=== PATIENT | female | born 1985 | race Hispanic/Latino ===

== ENCOUNTER 2021-11-22 11:26 | Inpatient (IN) | payer OTHER ==
[2021-11-22] MEDS ORDERED: Heparin 1,000 UNITS/ML VIAL ONE (13:58)
[2021-11-22 15:31] LABS: #Lymphocytes 1.5 thou/uL (1.20-3.40); #Monocytes 0.9 thou/uL (0.11-0.59); %Basophils 0.2 % (0.0-1.0); %Lymphocytes 11.2 % (21.0-51.0); %Monocytes 6.7 % (0.0-10.0); %Neutrophils 81.8 % (42.0-75.0); Hemoglobin 11.7 g/dL (12.0-16.0); Mean Corpuscular HGB CONC 32.1 g/dL (32.0-36.0); Mean Corpuscular Hemoglobin 26.5 pg (27.0-31.0); Mean Corpuscular Volume 82.4 fL (78.0-98.0); Mean Platelet Volume 6.9 fL (7.4-10.4); Platelet Count 374 thou/uL (130-400); RBC Distribution Width 15.6 % (11.5-14.5); Red Blood Cell (RBC) Count 4.42 mill/uL (4.20-5.40); White Blood Cell (WBC) Count 13.5 thou/uL (4.8-10.8)
[2021-11-22 15:54] LABS: ALT (SGPT) 28 U/L (8-55); AST (SGOT) 28 U/L (5-34); Albumin 2.9 g/dL (3.5-5.0); Alkaline Phosphatase 143 U/L (40-110); Anion Gap 16 mmol/L (10-20); BUN (Urea Nitrogen) 20 mg/dL (7.0-18.7); Bilirubin, Total 0.8 mg/dL (0.2-1.2); Calc. Creatinine Clearance 0 mL/min (70-130); Calcium 8.7 mg/dL (7.8-10.44); Carbon Dioxide 26 mmol/L (22-29); Chloride 101 mmol/L (98-107); Globulin 4.1 g/dL (2.4-3.5); Glucose 95 mg/dL (70-105); Sodium 139 mmol/L (136-145)
[2021-11-22] MEDS ORDERED: Acetaminophen 500 MG TAB ONE (16:21)
[2021-11-22] MEDS ORDERED: Ondansetron PF 4 MG/2 ML Vial ONE ×3 (16:41→21:28)
[2021-11-22] MEDS ORDERED: Morphine 4 MG/ML VIAL ONE (16:41)
[2021-11-22] MEDS ORDERED: Cefepime 2 GM VIAL ONE (16:41)
[2021-11-22] MEDS ORDERED: Vancomycin 1 GM/200 ML BAG ONE (18:19)
[2021-11-22] MEDS ORDERED: Fentanyl 100 MCG/2 ML VIAL ONE ×4 (18:19→23:18)
[2021-11-22] MEDS ORDERED: ceFAZolin (BATCH) 2 GM in Premix Bag 1 BAG IVPB SCH (18:45)
[2021-11-22 19:16] LABS: SARS-CoV-2 NAA Rapid Test Not Detected (NotDetected)
[2021-11-22] MEDS ORDERED: CEFAZOLIN 2 GM in Sodium Chloride 0.9% 100 ML IVPB SCH (19:30)
[2021-11-22] MEDS ORDERED: Acetaminophen 500 MG TAB PO PRN (19:52)
[2021-11-22] MEDS ORDERED: Ondansetron ODT 4 MG TAB PO PRN (19:52)
[2021-11-22] MEDS ORDERED: HYDROcodone/Acetaminophen 5/325 mg Tablet PO PRN (19:52)
[2021-11-22] MEDS ORDERED: Ondansetron PF 4 MG/2 ML Vial IVP PRN (19:52)
[2021-11-22] MEDS ORDERED: Dextrose 50% Abboject 50 ML SYRINGE SLOW IVP PRN (20:03)
[2021-11-22] MEDS ORDERED: HumaLOG 300 UNITS/3 ML VIAL SC PRN ×2 (20:03)
[2021-11-22] MEDS ORDERED: Dextrose 5% in Water 1,000 ML IV PRN (20:03)
[2021-11-22] MEDS ORDERED: SUGAMMADEX SODIUM 200 MG/2 ML VIAL ONE (20:22)
[2021-11-22] MEDS ORDERED: Midazolam HCl 2 mg/2 ml Vial ONE (20:22)
[2021-11-22] MEDS ORDERED: fentaNYL Citrate/PF 100 MCG/2 ML SYRINGE ONE (20:22)
[2021-11-22] MEDS ORDERED: Neomycin-Polymyxin 1 ML AMP ONE (20:40)
[2021-11-22] MEDS ORDERED: PROPOFOL 200 MG/20 ML VIAL ONE (21:28)
[2021-11-22] MEDS ORDERED: Lidocaine 1% PF 5 ML VIAL ONE (21:28)
[2021-11-22] MEDS ORDERED: Ketorolac Tromethamine 30 MG/ML VIAL ONE (21:28)
[2021-11-22] MEDS ORDERED: Clindamycin/D5W 900 MG in Premix Bag 1 BAG IVPB SCH (22:00)
[2021-11-22] MEDS ORDERED: Ondansetron HCl/PF 4 MG/2 ML Vial IVP PRN (22:31)
[2021-11-22] MEDS ORDERED: Promethazine HCl 25 MG/ML VIAL IVPB PRN (22:31)
[2021-11-22] MEDS ORDERED: Promethazine HCl 25 MG/ML VIAL IM PRN (22:31)
[2021-11-22] MEDS ORDERED: HYDROmorphone 0.5 MG/0.5 ML SYRINGE ONE ×2 (23:28→23:46)
[2021-11-22] MEDS ORDERED: HYDROmorphone 2 MG/ML VIAL SLOW IVP PRN (23:30)
[2021-11-23] MEDS ORDERED: HYDROmorphone 0.5 MG/0.5 ML SYRINGE ONE (00:04)
[2021-11-23] MEDS: Sodium Chloride 0.9% 1,000 ML IV SCH ×3 (00:59→15:07)
[2021-11-23 01:01] VITALS: BMI 32.1
[2021-11-23] MEDS: Famotidine 40 MG/4 ML VIAL SLOW IVP SCH ×2 (01:25→14:50)
[2021-11-23] MEDS: Clindamycin/D5W 900 MG in Premix Bag 1 BAG IVPB SCH ×3 (01:26→18:06)
[2021-11-23] MEDS ORDERED: VANCOMYCIN 1.25 GM/250 ML BAG 1.25 GM in Premix Bag 1 BAG IVPB SCH (04:00)
[2021-11-23] MEDS: Morphine 4 MG/ML VIAL SLOW IVP PRN ×2 (05:43→19:47)
[2021-11-23 08:18] LABS: Hemoglobin 10.8 g/dL (12.0-16.0); Mean Corpuscular Hemoglobin 25.9 pg (27.0-31.0); Mean Corpuscular Volume 86.4 fL (78.0-98.0); Mean Platelet Volume 6.7 fL (7.4-10.4); Platelet Count 319 thou/uL (130-400); RBC Distribution Width 15.9 % (11.5-14.5); Red Blood Cell (RBC) Count 4.15 mill/uL (4.20-5.40); White Blood Cell (WBC) Count 15.6 thou/uL (4.8-10.8)
[2021-11-23 08:29] LABS: ALT (SGPT) 24 U/L (8-55); AST (SGOT) 31 U/L (5-34); Albumin 2.4 g/dL (3.5-5.0); Alkaline Phosphatase 122 U/L (40-110); Anion Gap 15 mmol/L (10-20); BUN (Urea Nitrogen) 15 mg/dL (7.0-18.7); Bilirubin, Total 0.7 mg/dL (0.2-1.2); Calc. Creatinine Clearance 167 mL/min (70-130); Calcium 7.7 mg/dL (7.8-10.44); Carbon Dioxide 19 mmol/L (22-29); Chloride 107 mmol/L (98-107); Globulin 3.6 g/dL (2.4-3.5); Glucose 89 mg/dL (70-105); Potassium 4.3 mmol/L (3.5-5.1); Sodium 137 mmol/L (136-145)
[2021-11-23 08:42] LABS: Hemoglobin A1c 5.8 % (4.0-6.0)
[2021-11-23 08:53] LABS: #Monocytes 1.5 thou/uL (0.11-0.59); #Neutrophils 12.1 thou/uL (1.40-6.50); %Eosinophils 0.1 % (0.0-10.0); %Lymphocytes 13.1 % (21.0-51.0); %Monocytes 9.4 % (0.0-10.0); %Neutrophils 77.4 % (42.0-75.0); Band 26 % (5-11); Lymphocytes 8 % (21-51); MDiff Complete? YES; Macrocytosis SLIGHT = 6-15 cells (100X) (0-5/hpf); Monocytes 11 % (0-10); Neutrophil 55 % (42-75); Platelet Morphology Comment Appears Adequate; Polychromasia SLIGHT = 2-3 cells (100X) (0-2/hpf)
[2021-11-23] MEDS: Enoxaparin Sodium 40 MG/0.4 ML SYRINGE SC SCH (09:57)
[2021-11-23] MEDS: HYDROcodone/Acetaminophen 5/325 mg Tablet PO PRN ×4 (09:58→22:47)
[2021-11-23] MEDS ORDERED: ceFAZolin 2 GM/Dextrose 50 ML 2 GM in Premix Bag 1 BAG IVPB SCH ×2 (14:00→15:30)
[2021-11-23] MEDS ORDERED: Sodium Bicarb 50 MEQ/50 ML Abboject 8.4% SYRINGE IVP SCH (14:15)
[2021-11-23] MEDS: CEFAZOLIN 2 GM in Sodium Chloride 0.9% 100 ML IVPB SCH ×2 (14:56→21:02)
[2021-11-23] MEDS: Famotidine 20 MG TAB PO SCH (21:03)
[2021-11-24] MEDS: HYDROcodone/Acetaminophen 5/325 mg Tablet PO PRN ×4 (02:36→21:16)
[2021-11-24] MEDS: Clindamycin/D5W 900 MG in Premix Bag 1 BAG IVPB SCH ×3 (02:39→18:16)
[2021-11-24] MEDS: Sodium Chloride 0.9% 1,000 ML IV SCH ×3 (02:39→21:13)
[2021-11-24] MEDS: CEFAZOLIN 2 GM in Sodium Chloride 0.9% 100 ML IVPB SCH ×3 (05:31→21:12)
[2021-11-24 06:09] LABS: #Lymphocytes 2.3 thou/uL (1.20-3.40); #Monocytes 1.2 thou/uL (0.11-0.59); #Neutrophils 6.7 thou/uL (1.40-6.50); %Basophils 0.2 % (0.0-1.0); %Eosinophils 0.2 % (0.0-10.0); %Lymphocytes 22.2 % (21.0-51.0); %Monocytes 11.7 % (0.0-10.0); %Neutrophils 65.6 % (42.0-75.0); Hemoglobin 8.4 g/dL (12.0-16.0); Mean Corpuscular HGB CONC 31.9 g/dL (32.0-36.0); Mean Corpuscular Hemoglobin 26.5 pg (27.0-31.0); Mean Corpuscular Volume 83.2 fL (78.0-98.0); Mean Platelet Volume 6.3 fL (7.4-10.4); Platelet Count 351 thou/uL (130-400); RBC Distribution Width 15.4 % (11.5-14.5); Red Blood Cell (RBC) Count 3.17 mill/uL (4.20-5.40); White Blood Cell (WBC) Count 10.2 thou/uL (4.8-10.8)
[2021-11-24 06:33] LABS: Anion Gap 8 mmol/L (10-20); BUN (Urea Nitrogen) 9 mg/dL (7.0-18.7); Calc. Creatinine Clearance 175 mL/min (70-130); Calcium 7.4 mg/dL (7.8-10.44); Carbon Dioxide 26 mmol/L (22-29); Chloride 104 mmol/L (98-107); Glucose 96 mg/dL (70-105); Potassium 3.6 mmol/L (3.5-5.1); Sodium 134 mmol/L (136-145)
[2021-11-24] MEDS ORDERED: Calcium Gluconate 100 MG/ML 10 ML IVPB SCH (08:00)
[2021-11-24] MEDS: Famotidine 20 MG TAB PO SCH ×2 (08:47→21:15)
[2021-11-24] MEDS: Morphine 4 MG/ML VIAL SLOW IVP PRN ×4 (08:47→23:43)
[2021-11-24] MEDS: Enoxaparin Sodium 40 MG/0.4 ML SYRINGE SC SCH (10:09)
[2021-11-24] MEDS ORDERED: fentaNYL Citrate/PF 100 MCG/2 ML SYRINGE ONE (15:14)
[2021-11-24] MEDS ORDERED: Neomycin-Polymyxin 1 ML AMP ONE (15:44)
[2021-11-24] MEDS ORDERED: CEFAZOLIN 2 GM VIAL ONE (15:58)
[2021-11-24] MEDS ORDERED: Sodium Chloride 0.9% 100 ML ONE (15:58)
[2021-11-24] MEDS ORDERED: Dextrose 50% Abboject 50 ML SYRINGE ONE (16:08)
[2021-11-24] MEDS ORDERED: PROPOFOL 200 MG/20 ML VIAL ONE (16:34)
[2021-11-24] MEDS ORDERED: Lidocaine 1% PF 5 ML VIAL ONE (16:34)
[2021-11-24] MEDS ORDERED: Ondansetron PF 4 MG/2 ML Vial ONE (16:34)
[2021-11-24] MEDS ORDERED: Dexamethasone 20 MG/5 ML VIAL ONE (16:34)
[2021-11-24] MEDS ORDERED: Ondansetron HCl/PF 4 MG/2 ML Vial IVP PRN (17:33)
[2021-11-24] MEDS ORDERED: PACU-Morphine 4MG/ML VIAL SLOW IVP PRN (17:33)
[2021-11-24] MEDS ORDERED: HYDROmorphone 2 MG/ML VIAL SLOW IVP PRN (17:33)
[2021-11-24] MEDS ORDERED: Promethazine HCl 25 MG/ML VIAL IM PRN (17:33)
[2021-11-24] MEDS ORDERED: Promethazine HCl 25 MG/ML VIAL IVPB PRN (17:33)
[2021-11-24] MEDS ORDERED: HYDROcodone/Acetaminophen 5/325 mg Tablet ONE ×2 (17:41)
[2021-11-25] MEDS: Clindamycin/D5W 900 MG in Premix Bag 1 BAG IVPB SCH ×3 (01:31→17:10)
[2021-11-25] MEDS: CEFAZOLIN 2 GM in Sodium Chloride 0.9% 100 ML IVPB SCH ×3 (05:09→21:32)
[2021-11-25] MEDS: HYDROcodone/Acetaminophen 5/325 mg Tablet PO PRN ×4 (05:09→21:31)
[2021-11-25] MEDS: Famotidine 20 MG TAB PO SCH ×2 (09:04→21:32)
[2021-11-25] MEDS: Enoxaparin Sodium 40 MG/0.4 ML SYRINGE SC SCH (09:04)
[2021-11-25] MEDS: Sodium Chloride 0.9% 1,000 ML IV SCH ×3 (09:05→21:32)
[2021-11-25] MEDS: metFORMIN 500 MG TAB PO SCH (17:10)
[2021-11-25] MEDS: Ferrous Sulfate 325 MG TAB PO SCH (17:10)
[2021-11-26] MEDS: HYDROcodone/Acetaminophen 5/325 mg Tablet PO PRN ×5 (02:20→21:39)
[2021-11-26] MEDS: CEFAZOLIN 2 GM in Sodium Chloride 0.9% 100 ML IVPB SCH ×3 (06:23→21:39)
[2021-11-26] MEDS: Levothyroxine Sodium 50 MCG TAB PO SCH (06:24)
[2021-11-26 08:10] LABS: Anion Gap 12 mmol/L (10-20); BUN (Urea Nitrogen) 11 mg/dL (7.0-18.7); Calc. Creatinine Clearance 161 mL/min (70-130); Calcium 7.8 mg/dL (7.8-10.44); Carbon Dioxide 25 mmol/L (22-29); Chloride 106 mmol/L (98-107); Glucose 86 mg/dL (70-105); Potassium 3.7 mmol/L (3.5-5.1); Sodium 139 mmol/L (136-145)
[2021-11-26] MEDS: Ferrous Sulfate 325 MG TAB PO SCH ×2 (08:32→17:30)
[2021-11-26] MEDS: Famotidine 20 MG TAB PO SCH ×2 (08:33→21:39)
[2021-11-26] MEDS: Enoxaparin Sodium 40 MG/0.4 ML SYRINGE SC SCH (08:33)
[2021-11-26] MEDS: metFORMIN 500 MG TAB PO SCH ×2 (08:33→17:30)
[2021-11-26] MEDS: Sodium Chloride 0.9% 1,000 ML IV SCH (12:09)
[2021-11-26] MEDS: Morphine 4 MG/ML VIAL SLOW IVP PRN (21:45)
[2021-11-27] MEDS: Sodium Chloride 0.9% 1,000 ML IV SCH ×2 (02:03→05:59)
[2021-11-27 05:30] LABS: #Eosinphils 0.1 thou/uL (0.0-0.7); #Lymphocytes 2.8 thou/uL (1.20-3.40); #Monocytes 1.1 thou/uL (0.11-0.59); #Neutrophils 7.9 thou/uL (1.40-6.50); %Basophils 0.2 % (0.0-1.0); %Eosinophils 0.6 % (0.0-10.0); %Lymphocytes 23.3 % (21.0-51.0); %Monocytes 9.5 % (0.0-10.0); %Neutrophils 66.4 % (42.0-75.0); Hemoglobin 9.4 g/dL (12.0-16.0); Mean Corpuscular HGB CONC 32.7 g/dL (32.0-36.0); Mean Corpuscular Hemoglobin 26.5 pg (27.0-31.0); Mean Corpuscular Volume 80.9 fL (78.0-98.0); Mean Platelet Volume 6.2 fL (7.4-10.4); Platelet Count 589 thou/uL (130-400); RBC Distribution Width 15.3 % (11.5-14.5); Red Blood Cell (RBC) Count 3.53 mill/uL (4.20-5.40); White Blood Cell (WBC) Count 11.9 thou/uL (4.8-10.8)
[2021-11-27 05:44] LABS: Anion Gap 11 mmol/L (10-20); BUN (Urea Nitrogen) 10 mg/dL (7.0-18.7); Calc. Creatinine Clearance 181 mL/min (70-130); Calcium 8.4 mg/dL (7.8-10.44); Carbon Dioxide 25 mmol/L (22-29); Chloride 102 mmol/L (98-107); Glucose 89 mg/dL (70-105); Potassium 4.2 mmol/L (3.5-5.1); Sodium 134 mmol/L (136-145)
[2021-11-27] MEDS: CEFAZOLIN 2 GM in Sodium Chloride 0.9% 100 ML IVPB SCH ×3 (05:59→21:04)
[2021-11-27] MEDS: HYDROcodone/Acetaminophen 5/325 mg Tablet PO PRN ×5 (05:59→23:21)
[2021-11-27] MEDS: Levothyroxine Sodium 50 MCG TAB PO SCH (05:59)
[2021-11-27] MEDS: Famotidine 20 MG TAB PO SCH ×2 (09:01→21:03)
[2021-11-27] MEDS: Ferrous Sulfate 325 MG TAB PO SCH ×2 (09:01→18:05)
[2021-11-27] MEDS: metFORMIN 500 MG TAB PO SCH ×2 (09:01→18:05)
[2021-11-27] MEDS: Enoxaparin Sodium 40 MG/0.4 ML SYRINGE SC SCH (09:01)
[2021-11-27] MEDS ORDERED: Artificial Tear Sol 15 ML BOT EA EYE PRN (11:30)
[2021-11-27] MEDS ORDERED: Acetaminophen 500 MG TAB PO PRN (11:30)
[2021-11-27] MEDS ORDERED: Cepastat Lozenges 1 LOZ PO PRN (11:30)
[2021-11-27] MEDS ORDERED: Senokot S 8.6-50 MG TAB PO PRN (11:30)
[2021-11-27] MEDS ORDERED: Calcium Carbonate 500 MG ChewTAB PO PRN (11:30)
[2021-11-27] MEDS ORDERED: GUAIFENESIN SF SOLN 200 MG/10 ML UDCUP PO PRN (11:30)
[2021-11-27] MEDS ORDERED: Loratadine 10 MG TAB PO PRN (11:30)
[2021-11-27] MEDS ORDERED: Zolpidem Tartrate 5 MG TAB PO PRN (11:30)
[2021-11-27] MEDS ORDERED: hydrALAZINE 20 MG/ML VIAL SLOW IVP PRN (11:30)
[2021-11-27] MEDS ORDERED: Moisturizing Cream (Eucerin) 113 GM JAR TOP PRN (11:30)
[2021-11-27] MEDS ORDERED: Loperamide HCl 2 MG CAP PO PRN (11:30)
[2021-11-28] MEDS: Levothyroxine Sodium 50 MCG TAB PO SCH (05:15)
[2021-11-28] MEDS: CEFAZOLIN 2 GM in Sodium Chloride 0.9% 100 ML IVPB SCH ×3 (05:16→21:23)
[2021-11-28] MEDS: HYDROcodone/Acetaminophen 5/325 mg Tablet PO PRN ×5 (05:16→23:32)
[2021-11-28 05:41] LABS: #Eosinphils 0.1 thou/uL (0.0-0.7); #Lymphocytes 2.3 thou/uL (1.20-3.40); #Monocytes 0.9 thou/uL (0.11-0.59); #Neutrophils 8.2 thou/uL (1.40-6.50); %Basophils 0.3 % (0.0-1.0); %Eosinophils 0.6 % (0.0-10.0); %Lymphocytes 19.9 % (21.0-51.0); %Monocytes 8.2 % (0.0-10.0); Mean Corpuscular Hemoglobin 26.9 pg (27.0-31.0); Mean Corpuscular Volume 81.7 fL (78.0-98.0); Mean Platelet Volume 5.9 fL (7.4-10.4); Platelet Count 710 thou/uL (130-400); RBC Distribution Width 15.6 % (11.5-14.5); White Blood Cell (WBC) Count 11.5 thou/uL (4.8-10.8)
[2021-11-28 06:04] LABS: ALT (SGPT) 14 U/L (8-55); AST (SGOT) 26 U/L (5-34); Albumin 2.7 g/dL (3.5-5.0); Alkaline Phosphatase 112 U/L (40-110); Anion Gap 10 mmol/L (10-20); BUN (Urea Nitrogen) 8 mg/dL (7.0-18.7); Bilirubin, Total 0.7 mg/dL (0.2-1.2); CRP (Inflammatory) 13.66 mg/dL (= or < 0.5); Calc. Creatinine Clearance 161 mL/min (70-130); Calcium 8.9 mg/dL (7.8-10.44); Carbon Dioxide 27 mmol/L (22-29); Chloride 101 mmol/L (98-107); Globulin 4.3 g/dL (2.4-3.5); Glucose 78 mg/dL (70-105); Magnesium 2.1 mg/dL (1.6-2.6); Phosphorus 4.4 mg/dL (2.3-4.7); Potassium 4.3 mmol/L (3.5-5.1); Sodium 134 mmol/L (136-145)
[2021-11-28] MEDS ORDERED: diphenhydrAMINE 25 MG CAP PO SCH ×2 (07:00→23:45)
[2021-11-28] MEDS: Enoxaparin Sodium 40 MG/0.4 ML SYRINGE SC SCH (08:52)
[2021-11-28] MEDS: Ferrous Sulfate 325 MG TAB PO SCH ×2 (08:52→17:35)
[2021-11-28] MEDS: metFORMIN 500 MG TAB PO SCH ×2 (08:52→17:36)
[2021-11-28] MEDS: Famotidine 20 MG TAB PO SCH ×2 (08:52→21:24)
[2021-11-29] MEDS: CEFAZOLIN 2 GM in Sodium Chloride 0.9% 100 ML IVPB SCH (05:49)
[2021-11-29] MEDS: Levothyroxine Sodium 50 MCG TAB PO SCH (05:50)
[2021-11-29 06:06] LABS: #Eosinphils 0.2 thou/uL (0.0-0.7); #Lymphocytes 1.8 thou/uL (1.20-3.40); #Neutrophils 11.2 thou/uL (1.40-6.50); %Basophils 0.1 % (0.0-1.0); %Eosinophils 1.7 % (0.0-10.0); %Lymphocytes 12.6 % (21.0-51.0); %Monocytes 7.1 % (0.0-10.0); %Neutrophils 78.5 % (42.0-75.0); Hemoglobin 9.4 g/dL (12.0-16.0); Mean Corpuscular HGB CONC 31.3 g/dL (32.0-36.0); Mean Corpuscular Volume 83.3 fL (78.0-98.0); Mean Platelet Volume 5.7 fL (7.4-10.4); Platelet Count 738 thou/uL (130-400); RBC Distribution Width 15.9 % (11.5-14.5); White Blood Cell (WBC) Count 14.3 thou/uL (4.8-10.8)
[2021-11-29] MEDS: HYDROcodone/Acetaminophen 5/325 mg Tablet PO PRN ×4 (07:14→20:17)
[2021-11-29] MEDS: Famotidine 20 MG TAB PO SCH ×2 (09:28→20:17)
[2021-11-29] MEDS: Enoxaparin Sodium 40 MG/0.4 ML SYRINGE SC SCH (09:28)
[2021-11-29] MEDS: Ferrous Sulfate 325 MG TAB PO SCH ×2 (09:28→18:09)
[2021-11-29] MEDS: metFORMIN 500 MG TAB PO SCH ×2 (09:28→18:09)
[2021-11-29] MEDS ORDERED: Calamine/Zinc Oxide 177 ML LOTION TP PRN (10:35)
[2021-11-29] MEDS: VANCOMYCIN 1.25 GM/250 ML BAG 1.25 GM in Premix Bag 1 BAG IVPB SCH (14:35)
[2021-11-30] MEDS: Levothyroxine Sodium 50 MCG TAB PO SCH (03:10)
[2021-11-30] MEDS: HYDROcodone/Acetaminophen 5/325 mg Tablet PO PRN ×4 (03:10→23:34)
[2021-11-30] MEDS: VANCOMYCIN 1.25 GM/250 ML BAG 1.25 GM in Premix Bag 1 BAG IVPB SCH ×2 (03:11→14:23)
[2021-11-30 05:46] LABS: #Eosinphils 0.4 thou/uL (0.0-0.7); #Lymphocytes 2.7 thou/uL (1.20-3.40); #Monocytes 1.2 thou/uL (0.11-0.59); #Neutrophils 8.1 thou/uL (1.40-6.50); %Basophils 0.2 % (0.0-1.0); %Eosinophils 2.9 % (0.0-10.0); %Lymphocytes 21.6 % (21.0-51.0); %Monocytes 9.4 % (0.0-10.0); Hemoglobin 9.2 g/dL (12.0-16.0); Mean Corpuscular Hemoglobin 26.1 pg (27.0-31.0); Mean Platelet Volume 5.5 fL (7.4-10.4); Platelet Count 790 thou/uL (130-400); RBC Distribution Width 15.7 % (11.5-14.5); Red Blood Cell (RBC) Count 3.54 mill/uL (4.20-5.40); White Blood Cell (WBC) Count 12.3 thou/uL (4.8-10.8)
[2021-11-30 06:29] LABS: Anion Gap 12 mmol/L (10-20); BUN (Urea Nitrogen) 10 mg/dL (7.0-18.7); Calc. Creatinine Clearance 164 mL/min (70-130); Calcium 9.1 mg/dL (7.8-10.44); Carbon Dioxide 25 mmol/L (22-29); Chloride 102 mmol/L (98-107); Glucose 98 mg/dL (70-105); Potassium 4.4 mmol/L (3.5-5.1); Sodium 135 mmol/L (136-145)
[2021-11-30] MEDS: metFORMIN 500 MG TAB PO SCH ×2 (07:40→18:04)
[2021-11-30] MEDS: Ferrous Sulfate 325 MG TAB PO SCH ×2 (07:41→18:05)
[2021-11-30] MEDS: Enoxaparin Sodium 40 MG/0.4 ML SYRINGE SC SCH (07:41)
[2021-11-30] MEDS: Famotidine 20 MG TAB PO SCH ×2 (07:41→20:54)
[2021-11-30] MEDS: Ampicillin 2 GM in Sodium Chloride 0.9% 100 ML SLOW IVP SCH ×3 (18:05→23:29)
[2021-12-01] MEDS: Levothyroxine Sodium 50 MCG TAB PO SCH (06:28)
[2021-12-01] MEDS: Ampicillin 2 GM in Sodium Chloride 0.9% 100 ML SLOW IVP SCH ×2 (06:28→13:11)
[2021-12-01] MEDS ORDERED: HYDROmorphone 0.5 MG/0.5 ML SYRINGE SLOW IVP SCH (09:45)
[2021-12-01] MEDS: Enoxaparin Sodium 40 MG/0.4 ML SYRINGE SC SCH (09:54)
[2021-12-01] MEDS: Ferrous Sulfate 325 MG TAB PO SCH ×2 (09:54→19:06)
[2021-12-01] MEDS: metFORMIN 500 MG TAB PO SCH ×2 (09:54→19:06)
[2021-12-01] MEDS: Famotidine 20 MG TAB PO SCH ×2 (09:54→20:25)
[2021-12-01] MEDS: HYDROcodone/Acetaminophen 5/325 mg Tablet PO PRN ×3 (10:01→20:25)
[2021-12-01 10:10] LABS: #Eosinphils 0.3 thou/uL (0.0-0.7); #Lymphocytes 1.7 thou/uL (1.20-3.40); #Monocytes 0.8 thou/uL (0.11-0.59); #Neutrophils 7.2 thou/uL (1.40-6.50); %Basophils 0.2 % (0.0-1.0); %Eosinophils 3.5 % (0.0-10.0); %Lymphocytes 16.9 % (21.0-51.0); %Neutrophils 71.4 % (42.0-75.0); Hemoglobin 8.9 g/dL (12.0-16.0); Mean Corpuscular HGB CONC 31.9 g/dL (32.0-36.0); Mean Corpuscular Hemoglobin 26.4 pg (27.0-31.0); Mean Platelet Volume 5.9 fL (7.4-10.4); Platelet Count 708 thou/uL (130-400); RBC Distribution Width 15.5 % (11.5-14.5); Red Blood Cell (RBC) Count 3.38 mill/uL (4.20-5.40)
[2021-12-01] MEDS: VANCOMYCIN 1.25 GM/250 ML BAG 1.25 GM in Premix Bag 1 BAG IVPB SCH (15:39)
[2021-12-02] MEDS: HYDROcodone/Acetaminophen 5/325 mg Tablet PO PRN ×4 (02:37→22:26)
[2021-12-02] MEDS: VANCOMYCIN 1.25 GM/250 ML BAG 1.25 GM in Premix Bag 1 BAG IVPB SCH ×2 (02:50→15:17)
[2021-12-02] MEDS: Levothyroxine Sodium 50 MCG TAB PO SCH (05:19)
[2021-12-02] MEDS: Enoxaparin Sodium 40 MG/0.4 ML SYRINGE SC SCH (08:22)
[2021-12-02] MEDS: Ferrous Sulfate 325 MG TAB PO SCH ×2 (08:22→17:58)
[2021-12-02] MEDS: metFORMIN 500 MG TAB PO SCH ×2 (08:22→17:58)
[2021-12-02] MEDS: Famotidine 20 MG TAB PO SCH ×2 (08:23→21:43)
[2021-12-02] MEDS: Lidocaine 5% Patch TD SCH (11:02)
[2021-12-02] MEDS: Transdermal Patch Removal TOP SCH (21:43)
[2021-12-03 01:47] LABS: Vancomycin, Trough 12.2 ug/mL
[2021-12-03] MEDS: HYDROcodone/Acetaminophen 5/325 mg Tablet PO PRN ×4 (02:41→18:48)
[2021-12-03] MEDS: VANCOMYCIN 1.25 GM/250 ML BAG 1.25 GM in Premix Bag 1 BAG IVPB SCH ×2 (02:43→14:31)
[2021-12-03] MEDS: Levothyroxine Sodium 50 MCG TAB PO SCH (06:21)
[2021-12-03] MEDS: metFORMIN 500 MG TAB PO SCH ×2 (08:38→18:51)
[2021-12-03] MEDS: Ferrous Sulfate 325 MG TAB PO SCH ×2 (08:39→18:47)
[2021-12-03] MEDS: Famotidine 20 MG TAB PO SCH ×2 (08:40→23:12)
[2021-12-03] MEDS: Lidocaine 5% Patch TD SCH (08:40)
[2021-12-03] MEDS: Enoxaparin Sodium 40 MG/0.4 ML SYRINGE SC SCH (08:40)
[2021-12-03] MEDS: Transdermal Patch Removal TOP SCH (23:12)
[2021-12-04] MEDS: HYDROcodone/Acetaminophen 5/325 mg Tablet PO PRN ×4 (02:03→16:41)
[2021-12-04] MEDS: VANCOMYCIN 1.25 GM/250 ML BAG 1.25 GM in Premix Bag 1 BAG IVPB SCH ×2 (02:04→14:32)
[2021-12-04] MEDS: Levothyroxine Sodium 50 MCG TAB PO SCH (06:09)
[2021-12-04] MEDS: Ferrous Sulfate 325 MG TAB PO SCH ×2 (08:15→16:41)
[2021-12-04] MEDS: Enoxaparin Sodium 40 MG/0.4 ML SYRINGE SC SCH (08:15)
[2021-12-04] MEDS: Famotidine 20 MG TAB PO SCH ×2 (08:15→23:00)
[2021-12-04] MEDS: metFORMIN 500 MG TAB PO SCH ×2 (08:18→16:41)
[2021-12-04] MEDS: Lidocaine 5% Patch TD SCH (10:45)
[2021-12-04] MEDS: Transdermal Patch Removal TOP SCH (23:01)
[2021-12-05] MEDS: HYDROcodone/Acetaminophen 5/325 mg Tablet PO PRN ×4 (00:16→18:55)
[2021-12-05 01:31] LABS: Vancomycin, Trough 10.2 ug/mL
[2021-12-05] MEDS: VANCOMYCIN 1.25 GM/250 ML BAG 1.25 GM in Premix Bag 1 BAG IVPB SCH ×2 (02:24→15:09)
[2021-12-05] MEDS: Levothyroxine Sodium 50 MCG TAB PO SCH (05:16)
[2021-12-05] MEDS: Lidocaine 5% Patch TD SCH (09:33)
[2021-12-05] MEDS: metFORMIN 500 MG TAB PO SCH ×2 (09:33→18:53)
[2021-12-05] MEDS: Enoxaparin Sodium 40 MG/0.4 ML SYRINGE SC SCH (09:33)
[2021-12-05] MEDS: Famotidine 20 MG TAB PO SCH ×2 (09:34→21:53)
[2021-12-05] MEDS: Ferrous Sulfate 325 MG TAB PO SCH ×2 (09:34→18:54)
[2021-12-06] MEDS: VANCOMYCIN 1.25 GM/250 ML BAG 1.25 GM in Premix Bag 1 BAG IVPB SCH ×2 (02:36→14:26)
[2021-12-06] MEDS: Transdermal Patch Removal TOP SCH ×2 (02:36→23:19)
[2021-12-06] MEDS: HYDROcodone/Acetaminophen 5/325 mg Tablet PO PRN ×3 (04:45→14:26)
[2021-12-06] MEDS: Levothyroxine Sodium 50 MCG TAB PO SCH (04:46)
[2021-12-06] MEDS: Ferrous Sulfate 325 MG TAB PO SCH ×2 (09:02→17:30)
[2021-12-06] MEDS: Famotidine 20 MG TAB PO SCH ×2 (09:02→21:47)
[2021-12-06] MEDS: Enoxaparin Sodium 40 MG/0.4 ML SYRINGE SC SCH (09:02)
[2021-12-06] MEDS: Lidocaine 5% Patch TD SCH (09:03)
[2021-12-06] MEDS: metFORMIN 500 MG TAB PO SCH ×2 (09:07→18:18)
[2021-12-07] MEDS: VANCOMYCIN 1.25 GM/250 ML BAG 1.25 GM in Premix Bag 1 BAG IVPB SCH ×2 (02:59→14:27)
[2021-12-07] MEDS: Levothyroxine Sodium 50 MCG TAB PO SCH (05:10)
[2021-12-07] MEDS: metFORMIN 500 MG TAB PO SCH ×2 (09:22→18:09)
[2021-12-07] MEDS: Enoxaparin Sodium 40 MG/0.4 ML SYRINGE SC SCH (09:24)
[2021-12-07] MEDS: Ferrous Sulfate 325 MG TAB PO SCH ×2 (09:24→17:38)
[2021-12-07] MEDS: Lidocaine 5% Patch TD SCH (09:24)
[2021-12-07] MEDS: Famotidine 20 MG TAB PO SCH ×2 (09:24→19:59)
[2021-12-07] MEDS: HYDROcodone/Acetaminophen 5/325 mg Tablet PO PRN ×2 (09:30→19:59)
[2021-12-07 13:26] LABS: Vancomycin, Trough 13.4 ug/mL
[2021-12-07] MEDS: Transdermal Patch Removal TOP SCH (20:04)
[2021-12-08] MEDS: VANCOMYCIN 1.25 GM/250 ML BAG 1.25 GM in Premix Bag 1 BAG IVPB SCH (02:38)
[2021-12-08] MEDS: Levothyroxine Sodium 50 MCG TAB PO SCH (05:04)
[2021-12-08] MEDS: HYDROcodone/Acetaminophen 5/325 mg Tablet PO PRN (05:04)
[2021-12-08 06:14] LABS: #Basophils 0.1 thou/uL (0.0-0.2); #Eosinphils 0.6 thou/uL (0.0-0.7); #Lymphocytes 1.9 thou/uL (1.20-3.40); #Monocytes 0.8 thou/uL (0.11-0.59); #Neutrophils 3.8 thou/uL (1.40-6.50); %Basophils 0.9 % (0.0-1.0); %Lymphocytes 26.7 % (21.0-51.0); %Monocytes 10.8 % (0.0-10.0); %Neutrophils 53.6 % (42.0-75.0); Hemoglobin 8.6 g/dL (12.0-16.0); Mean Corpuscular HGB CONC 30.3 g/dL (32.0-36.0); Mean Corpuscular Volume 85.9 fL (78.0-98.0); Mean Platelet Volume 6.1 fL (7.4-10.4); Platelet Count 524 thou/uL (130-400); RBC Distribution Width 15.8 % (11.5-14.5); Red Blood Cell (RBC) Count 3.29 mill/uL (4.20-5.40)
[2021-12-08 06:44] LABS: Anion Gap 15 mmol/L (10-20); BUN (Urea Nitrogen) 8 mg/dL (7.0-18.7); Calc. Creatinine Clearance 169 mL/min (70-130); Calcium 9.1 mg/dL (7.8-10.44); Carbon Dioxide 25 mmol/L (22-29); Chloride 103 mmol/L (98-107); Estimated GFR 118; Glucose 76 mg/dL (70-105); Potassium 3.7 mmol/L (3.5-5.1); Sodium 139 mmol/L (136-145)
[2021-12-08 07:59] VITALS: BP 120/77; TEMP 98.3
== END 2021-12-08 08:20 | disposition home or self-care (01) | DRG 485 ==
LOC: ERS 11:26 → SURG A 19:52 → EEVIPCON 19:52
PROVIDERS: ADMIT Internal Medicine; ATTEND Internal Medicine
PROC: 0S9D0ZZ Drainage of Left Knee Joint, Open Approach (ICD-10-PCS; principal; 2021-11-22)
PROC: 0K9T0ZZ Drainage of Left Lower Leg Muscle, Open Approach (ICD-10-PCS; 2021-11-25)
PROC: 02HV33Z Insertion of Infusion Device into Superior Vena Cava, Percutaneous Approach (ICD-10-PCS; 2021-11-26)
PROC: B548ZZA Ultrasonography of Superior Vena Cava, Guidance (ICD-10-PCS; 2021-11-26)
DX: M00.262 Other streptococcal arthritis, left knee (principal); M72.6 Necrotizing fasciitis; M60.004 Infective myositis, unspecified left leg; E11.52 Type 2 diabetes mellitus with diabetic peripheral angiopathy with gangrene; L03.116 Cellulitis of left lower limb; E87.2 Acidosis; R78.81 Bacteremia; Z20.822 Contact with and (suspected) exposure to COVID-19; E66.9 Obesity, unspecified; B95.1 Streptococcus, group B, as the cause of diseases classified elsewhere; D64.9 Anemia, unspecified; E03.9 Hypothyroidism, unspecified; Z79.890 Hormone replacement therapy; Z79.84 Long term (current) use of oral hypoglycemic drugs; Z79.899 Other long term (current) drug therapy; Z68.32 Body mass index [BMI] 32.0-32.9, adult; L27.0 Generalized skin eruption due to drugs and medicaments taken internally; T36.1X5A Adverse effect of cephalosporins and other beta-lactam antibiotics, initial encounter
CPT/HCPCS: 36415; 36416; 36569; 80048; 80053; 80202; 82550; 83036; 83605; 83735; 84100; 85025; 85652; 86140; 87040; 87070; 87077; 87149; 87186; 87205; 96361; 96365; 96367; 96375; 96376; C1751; J0290; J0610; J0690; J0692; J1100; J1170; J1644; J1650; J1815; J1885; J2250; J2270; J2405; J2704; J3010; J3370; J3490; J7050; J7999; U0002; U0003; U0005